=== PATIENT | male | born 1960 | race Caucasian/White ===

== ENCOUNTER 2017-03-24 16:37 | Emergency (ER) | payer OTHER ==
[~2017-03-24] VITALS: Ht 180.3 cm; Wt 101.3 kg
[2017-03-24 16:41] VITALS: TEMP 36.7; Ht 180.3 cm; Wt 101.3 kg
[2017-03-24] MEDS ORDERED: CYCL10TA6 PO (17:21)
--- NOTE | 2017-03-24 17:22 | EMERGENCY ROOM VISIT NOTE ---
History First contact with patient: 16:53 Chief Complaint: NECK PAIN Stated Complaint: NECK PAIN History of Present Illness The patient is a 56 year old male who presents to the Emergency Room with complaints of right-sided neck pain. The patient states that this morning, he stood up after working on his laptop and developed a sharp pain on the right side of his neck. He states that he has had persistent pain since then and has a sharp pain when turning his head to the right or extending his head backward. He denies any pain at rest. He describes the pain as a sharp, shooting pain. He took aspirin and ibuprofen today without relief. He rates his discomfort a 6/10 with movement. He denies any recent illnesses or fevers/chills. He denies any numbness or weakness. He denies any radiation of the pain into the arms. Denies chest pain or shortness of breath. Review of Systems A complete 10 point review of systems was reviewed with the patient with pertinent positives and negatives as per history of present illness. All else were negative. Social History Smoking Status: Never Smoker Current/Historical Medications Scheduled Cyclobenzaprine Hcl (Flexeril), 10 MG PO TID Physical Exam Vital Signs Date Time Temp Pulse Resp B/P (MAP) Pulse Ox O2 Delivery O2 Flow Rate FiO2 03/24/17 17:37 72 18 137/78 98 03/24/17 16:41 36.7 90 16 162/85 96 Room Air Physical Exam VITALS: Vitals are noted on the nurse's note and reviewed by myself. Vital signs stable. GENERAL: This is a 56-year-old male, in no acute distress, nondiaphoretic, well- developed well-nourished. EARS: External auditory canals clear, tympanic membranes pearly [place] without erythema or effusion bilaterally. EYES: Pupils equal round and reactive to light and accommodation. Extraocular movements intact. NECK: Supple without nuchal rigidity. No lymphadenopathy. Cervical spine is nontender. Decreased rightward rotation of the neck and decreased extension. Full flexion of the neck. HEART: Regular rate and rhythm without murmurs gallops or rubs. LUNGS: Clear to auscultation bilaterally without wheezes, rales or rhonchi. MUSCULOSKELETAL: [employer] strength 5/5. NEURO: Patient was alert and oriented to person place and time. Normal sensation to bilateral upper extremities. Medical Decision & Procedures Medications Administered Medications (Trade) Dose Ordered Sig/Nesha Route Start Time Stop Time Status Last Admin Dose Admin Cyclobenzaprine HCl (FLEXERIL 10MG Home Pack) 1 homepack UD ONCE PO 03/24/17 17:30 03/24/17 17:31 DC 03/24/17 17:35 1 HOMEPACK Medical Decision Differential diagnosis includes arthritis, muscle spasm, torticollis, meningitis , among others. The patient was evaluated as above. He presents today with right-sided neck pain. There are no concerning findings on exam. The patient's right-sided cervical paraspinous muscles are noticeably tighter than the left. I believe this is due to muscle spasm. He has had no recent illness or fevers. There is no numbness or weakness. I do not feel that imaging is indicated at this time. I had a discussion with the patient regarding symptoms and treatment plan. He will be given a prescription for Flexeril and was instructed to take anti- inflammatories as well. He will be given a note for work today and tomorrow, as he does not feel safe driving in this condition. He will follow-up with his primary care provider this week for a recheck. He verbalized understanding of my assessment and treatment plan and was discharged home in good condition. Medication Reconcilliation Current Medication List: was personally reviewed by me Blood Pressure Screening Patient's blood pressure: Normal blood pressure Impression Primary Impression: Cervical paraspinal muscle spasm Departure Information Dispostion Home / Self-Care Condition GOOD Prescriptions Cyclobenzaprine Hcl (FLEXERIL) 10 Mg Tab 10 MG PO TID for 3 Days, #9 TAB Prov: Kiya De Jesus ., PAO 03/24/17 Referrals No Doctor, Assigned (PCP) Patient Instructions My [facility] Additional Instructions You have been treated in the Emergency Department for neck Pain. You have been prescribed Flexeril (cyclobenzaprine) 1-2 tabs orally, three times per day. Do NOT exceed 30 mg (6 tabs) per day. Take your first dose at bedtime as it can make you drowsy. Always take all medications as prescribed. For pain control, you can use the following [id number] medicines (if >12 yo): - Regular strength (325mg/tab) Tylenol (acetaminophen) 2 tabs every 4-6 hours as needed. Do not exceed 12 tablets in a 24 hour period. Avoid taking more than 4 grams (4000 mg) of Tylenol per day. This includes any other sources of acetaminophen you may take on a regular basis. - Regular strength (200 mg/tab) Advil (ibuprofen) 1-2 tabs every 4-6 hours as needed. Do not exceed a dose of 3200 mg per day. Apply a heating pad to the neck. Follow-up with primary care in 2 days to be cleared to return to work. Return to the Emergency Department if your current symptoms worsen despite treatment course outlined above, or if you develop any of the following symptoms : intractable pain despite aforementioned treatment course, numbness or tingling in your arms, or development of a fever.
[2017-03-24] MEDS ORDERED: FLEXERIL HOME PACK 10 MG VIAL PO ONE (17:30)
[2017-03-24 17:37] VITALS: BP 137/78; PULSE 72; O2SAT 98
== END 2017-03-24 17:39 | disposition home or self-care (01) ==
LOC: C.EDB 16:39 → C.EDD 17:39
DX: M62.838 Other muscle spasm (principal)